=== PATIENT | female | born 2000 | race Caucasian/White ===

== ENCOUNTER 2024-02-21 07:08 | Inpatient (IN) | payer OTHER ==
[2024-02-21] MEDS ORDERED: Lidocaine 1% 50 ML MDV INJECT PRN (07:18)
[2024-02-21] MEDS ORDERED: Sodium Chloride 0.9% 10 ML Syringe FLUSH PRN (07:18)
[2024-02-21] MEDS ORDERED: Ondansetron 4 MG/2 ML SDV IVPUSH PRN (07:18)
[2024-02-21] MEDS ORDERED: Nalbuphine 10 MG/ML Syringe IVPUSH PRN (07:18)
[2024-02-21] MEDS ORDERED: Calcium Carbonate 500 MG Tab.Chew PO PRN (07:18)
[2024-02-21] MEDS ORDERED: Oxytocin/Lactated Ringers 30 UNIT/500 ML BAG IV SCH (07:30)
[2024-02-21 08:02] LABS: BASOPHILS ABSOLUTE AUTO 0.1 K/mm3 (0.0-0.2); BASOPHILS PERCENT AUTO 0.5 % (0.0-1.0); EOSINOPHILS ABSOLUTE AUTO 0.2 K/mm3 (0.0-0.4); EOSINOPHILS PERCENT AUTO 1.4 % (0.0-6.0); HEMATOCRIT 35.1 % (37.0-47.0); HEMOGLOBIN 11.7 gm/dl (12.0-16.0); IMMATURE GRAN ABSOLUTE AUTO 0.07 K/mm3 (0.00-0.05); IMMATURE GRAN PERCENT AUTO 0.6 % (0.0-0.4); LYMPHOCYTES PERCENT AUTO 16.4 % (24.0-44.0); MEAN CORPUSCULAR HEMOGLOBIN 28.7 pg (28.0-32.0); MEAN CORPUSCULAR HGB CONC 33.3 g/dl (32.0-36.0); MEAN PLATELET VOLUME 10.5 fl (9.4-12.3); MONOCYTES ABSOLUTE AUTO 0.8 K/mm3 (0.0-0.8); MONOCYTES PERCENT AUTO 6.1 % (0.0-8.0); NEUTROPHILS ABSOLUTE AUTO 9.3 K/mm3 (1.8-7.7); PLATELET COUNT,PLT 301 K/mm3 (150-400); RED BLOOD CELL COUNT 4.08 M/mm3 (4.10-5.30); WHITE BLOOD CELL COUNT,WBC 12.34 K/mm3 (3.9-11.3)
[2024-02-21] MEDS: Misoprostol 25 MCG (1/4 of 100 MCG) Tab PO PRN (08:25)
[2024-02-21] MEDS: Lactated Ringers 1,000 ML IV SCH (17:28)
[2024-02-21] MEDS: Oxytocin/Lactated Ringers 30 UNIT/500 ML BAG IV SCH (18:11)
[2024-02-21] MEDS ORDERED: diphenhydrAMINE 50 MG/ML SDV IVPUSH PRN (21:59)
[2024-02-21] MEDS ORDERED: ePHEDrine 50 MG/ML SDV IVPUSH PRN (21:59)
[2024-02-21] MEDS: fentaNYL 100 MCG/2 ML SDV EPIDUR PRN (22:10)
[2024-02-21] MEDS: Bupivacaine/fentaNYL/NS 100 ML Bag EPIDUR PRN (22:17)
[2024-02-22] MEDS: Metoclopramide 10 MG/2 ML SDV IVPUSH ONE (09:53)
[2024-02-22] MEDS: Citric Acid/Sodium Citrate Solution 30 ML Cup PO ONE (09:53)
[2024-02-22] MEDS: Bupivacaine 0.5% 30 ML SDV ONE (10:22)
[2024-02-22] MEDS ORDERED: ePHEDrine 50 MG/ML SDV ONE (10:24)
[2024-02-22] MEDS ORDERED: Methylergonovine 0.2 MG/1 ML Amp ONE (10:28)
[2024-02-22] MEDS ORDERED: Misoprostol 200 MCG Tab ONE (10:37)
[2024-02-22] MEDS ORDERED: Ketorolac 30 MG/ML SDV ONE (10:44)
[2024-02-22] MEDS ORDERED: Lidocaine 2% with EPINEPHrine 1:200,000 20 ML SDV ONE (10:44)
[2024-02-22] MEDS ORDERED: Lactated Ringers 1,000 ML ONE (10:49)
[2024-02-22] MEDS ORDERED: Morphine PF 10 MG/10 ML SDV ONE (10:57)
[2024-02-22] MEDS ORDERED: fentaNYL 100 MCG/2 ML SDV IVPUSH PRN (11:14)
[2024-02-22] MEDS ORDERED: diphenhydrAMINE 50 MG/ML SDV IVPUSH PRN ×2 (11:14→12:40)
[2024-02-22] MEDS ORDERED: Ondansetron 4 MG/2 ML SDV IVPUSH PRN ×2 (11:14→12:51)
[2024-02-22] MEDS ORDERED: Lidocaine 1.5% with EPINEPHrine 1:200,000 5 ML Amp ONE (12:00)
[2024-02-22] MEDS ORDERED: Acetaminophen/oxyCODONE 325-5 MG Tab PO PRN (12:40)
[2024-02-22] MEDS ORDERED: ePHEDrine 50 MG/ML SDV IVPUSH PRN (12:40)
[2024-02-22] MEDS ORDERED: Naloxone 0.4 MG/ML SDV IVPUSH PRN (12:40)
[2024-02-22] MEDS: Dextrose 5%-Lactated Ringers 1,000 ML IV SCH (15:03)
[2024-02-22] MEDS: Ketorolac 30 MG/ML SDV IVPUSH SCH (16:32)
[2024-02-23 05:33] LABS: BASOPHILS ABSOLUTE AUTO 0.1 K/mm3 (0.0-0.2); BASOPHILS PERCENT AUTO 0.3 % (0.0-1.0); EOSINOPHILS ABSOLUTE AUTO 0.1 K/mm3 (0.0-0.4); EOSINOPHILS PERCENT AUTO 0.4 % (0.0-6.0); HEMATOCRIT 26.3 % (37.0-47.0); HEMOGLOBIN 8.6 gm/dl (12.0-16.0); IMMATURE GRAN ABSOLUTE AUTO 0.08 K/mm3 (0.00-0.05); IMMATURE GRAN PERCENT AUTO 0.5 % (0.0-0.4); LYMPHOCYTES ABSOLUTE AUTO 1.6 K/mm3 (1.0-4.8); LYMPHOCYTES PERCENT AUTO 9.6 % (24.0-44.0); MEAN CORPUSCULAR HEMOGLOBIN 29.2 pg (28.0-32.0); MEAN CORPUSCULAR HGB CONC 32.7 g/dl (32.0-36.0); MEAN CORPUSCULAR VOLUME 89.2 fl (83.0-99.0); MEAN PLATELET VOLUME 10.6 fl (9.4-12.3); MONOCYTES ABSOLUTE AUTO 1.1 K/mm3 (0.0-0.8); MONOCYTES PERCENT AUTO 6.4 % (0.0-8.0); NEUTROPHILS ABSOLUTE AUTO 14.1 K/mm3 (1.8-7.7); NEUTROPHILS PERCENT AUTO 82.8 % (41.0-71.0); PLATELET COUNT,PLT 228 K/mm3 (150-400); RED BLOOD CELL COUNT 2.95 M/mm3 (4.10-5.30); WHITE BLOOD CELL COUNT,WBC 17.07 K/mm3 (3.9-11.3)
[2024-02-23] MEDS: Ibuprofen 600 MG Tab PO SCH ×2 (12:13→14:48)
[2024-02-23] MEDS: Docusate Sodium 100 MG Cap PO PRN (12:14)
[2024-02-23] MEDS: Azithromycin 500 MG in Sodium Chloride 0.9% 250 ML IV ONE (14:48)
[2024-02-23] MEDS: Ketorolac 30 MG/ML SDV IVPUSH SCH (14:49)
[2024-02-23] MEDS: Acetaminophen/oxyCODONE 325-5 MG Tab PO PRN (20:09)
== END 2024-02-24 16:33 | disposition home or self-care (01) | DRG 788 ==
LOC: JD.OB 07:08 → OBSVTOIN 02-22 10:25 → JD.MS 02-22 10:26 → JD.OB 02-22 13:08
PROVIDERS: ADMIT Family Medicine; ATTEND Obstetrics & Gynecology
PROC: 3E0R3BZ Introduction of Anesthetic Agent into Spinal Canal, Percutaneous Approach (ICD-10-PCS; 2024-02-22)
PROC: 00HU33Z Insertion of Infusion Device into Spinal Canal, Percutaneous Approach (ICD-10-PCS; 2024-02-22)
PROC: 30233N1 Transfusion of Nonautologous Red Blood Cells into Peripheral Vein, Percutaneous Approach (ICD-10-PCS; 2024-02-22)
PROC: 10D00Z1 Extraction of Products of Conception, Low, Open Approach (ICD-10-PCS; principal; 2024-02-22 10:00)
DX: O62.2 Other uterine inertia (principal); Z3A.40 40 weeks gestation of pregnancy; Z37.0 Single live birth
CPT/HCPCS: 01961; 36415; 51702; 59025; 85025; 85461; 86592; 86850; 86870; 86900; 86901; 94762; A9270-GY; J0665; J1885; J2210; J2274; J2765; J2790; J3010; J3490; J7120; J7121; J7999